=== PATIENT | female | born 1950 | race Native Hawaiian/Other Pacific Islander ===

== ENCOUNTER 2017-04-02 10:57 | Day surgery (SDC) | payer MEDICARE, OTHER ==
[2017-04-02] MEDS ORDERED: PROLIA SUB-Q ONE (12:00)
[2017-04-02 12:23] VITALS: BP 135/66
== END 2017-04-02 12:27 | disposition home or self-care (01) ==
LOC: OPU 10:57 → EDSTATUS 11:00 → OPU 12:27
PROVIDERS: ATTEND Internal Medicine
DX: M81.0 Age-related osteoporosis without current pathological fracture (principal)
CPT/HCPCS: 36415; 82310; 82565; 96372; J0897

== ENCOUNTER 2017-08-06 07:14 | Outpatient (CLI) | payer MEDICARE, OTHER ==
--- NOTE | 2017-08-06 11:13 | Fluoroscopy Report ---
AIR-CONTRAST BARIUM ENEMA History: Change in bowel habits. Findings: Orthotics Prosthetics Assistant film of the abdomen is within normal limits. Multiple fluoroscopic and radiographic images were obtained following retrograde administration of barium contrast and air through a rectal tube. There is normal mucosal pattern and distensibility of the colon. There are a few diverticula in the sigmoid region. No evidence for mass, polyposis or focal inflammation. There is normal emptying of the colon on the postevacuation films. I believe I see the terminal ileum and appendix which are unremarkable on the postevacuation film. Impression: Few scattered diverticula in the sigmoid colon, otherwise, normal exam.
== END 2017-08-06 07:15 | disposition home or self-care (01) ==
LOC: FLUORO 07:14
PROVIDERS: ATTEND Internal Medicine
DX: K57.30 Diverticulosis of large intestine without perforation or abscess without bleeding (principal); R19.4 Change in bowel habit; I10 Essential (primary) hypertension; E78.00 Pure hypercholesterolemia, unspecified; J45.909 Unspecified asthma, uncomplicated; Z87.891 Personal history of nicotine dependence
CPT/HCPCS: 74280

== ENCOUNTER 2019-09-01 09:25 | Outpatient (CLI) | payer MEDICARE, OTHER ==
[2019-09-01 11:18] LABS: Chol/HDL Ratio 2.26 %
== END 2019-09-01 09:26 | disposition home or self-care (01) ==
LOC: LAB 09:25
PROVIDERS: ATTEND Internal Medicine
DX: E78.5 Hyperlipidemia, unspecified (principal); E11.9 Type 2 diabetes mellitus without complications
CPT/HCPCS: 36415; 80061; 83036

== ENCOUNTER 2020-01-19 09:05 | Outpatient (CLI) | payer MEDICARE, OTHER ==
[2020-01-19 10:26] LABS: Chol/HDL Ratio 2.34 %
== END 2020-01-19 09:06 | disposition home or self-care (01) ==
LOC: LAB 09:05
PROVIDERS: ATTEND Internal Medicine
DX: E11.9 Type 2 diabetes mellitus without complications (principal); E78.5 Hyperlipidemia, unspecified
CPT/HCPCS: 36415; 80061; 83036

== ENCOUNTER 2020-02-03 10:59 | Outpatient (CLI) | payer MEDICARE, OTHER ==
--- NOTE | 2020-02-03 11:42 | XRay Report ---
BILATERAL HANDS HISTORY: Osteoarthritis. COMPARISON: None. TECHNIQUE: 2 views of both hands were obtained. FINDINGS: LEFT: Bones: No fracture or dislocation. Moderate diffuse osteopenia. Joint spaces: Moderately severe osteoarthritis at the basal joint of the thumb and moderate osteoarth ritis involving the the PE joints of the index, middle and ring fingers. The rest of the joints are m aintained. No erosions. The carpal bones are intact. The distal radius and ulna and the radiocarpal j oint are normal. Soft tissues: Normal. RIGHT: Bones: Fracture or dislocation. Moderate diffuse osteopenia. Joint spaces: Moderately severe osteoarthritis at the basal joint of the thumb and the DIP joint of t he thumb. Osteoarthritis involving the DIP joint of the index finger and mild osteoarthritis involvin g the middle finger. The rest of the joints are maintained. No erosions. The carpal bones are intact. The distal radius and ulna and the radiocarpal joint are normal. Additional findings: None. IMPRESSION: 1. Moderately severe osteoarthritis involving bilateral basal thumb joints, the DIP joints of the rig ht thumb and index finger. 2. Lesser degree of osteoarthritis involving bilateral DIP joints. 3. No evidence of erosive disease. Signer Name: Rene Dueñas MD Signed: 02/03/2020 11:38 AM Workstation Name: [id number]
== END 2020-02-03 11:00 | disposition home or self-care (01) ==
LOC: XRAY 10:59
PROVIDERS: ATTEND Internal Medicine
DX: M19.042 Primary osteoarthritis, left hand (principal); M19.041 Primary osteoarthritis, right hand; M85.88 Other specified disorders of bone density and structure, other site